=== PATIENT | male | born 1995 | race Two or more races ===

== ENCOUNTER 2022-12-10 09:44 | Emergency (ER) | payer OTHER ==
[2022-12-10] MEDS ORDERED: Ibuprofen 600 MG Tab PO ONE (09:59)
[2022-12-10] MEDS ORDERED: Morphine 15 MG Tab PO ONE (09:59)
[2022-12-10] MEDS ORDERED: Acetaminophen 500 MG Tab PO ONE (09:59)
[2022-12-10] MEDS ORDERED: Orphenadrine 60 MG/2 ML Inj IM ONE (11:25)
== END 2022-12-10 11:58 | disposition home or self-care (01) ==
LOC: MW.ED 09:44
DX: S76.811A Strain of other specified muscles, fascia and tendons at thigh level, right thigh, initial encounter (principal); T14.8XXA Other injury of unspecified body region, initial encounter; V89.2XXA Person injured in unspecified motor-vehicle accident, traffic, initial encounter
CPT/HCPCS: 73552; 73560; 96372; 99284; A9270; J2360; 99283